=== PATIENT | female | born 1955 | race Caucasian/White ===

== ENCOUNTER 2020-09-29 11:41 | Day surgery (SDC) | payer OTHER ==
[2020-09-25 17:18] VITALS: BMI 29.7
[2020-09-29] MEDS ORDERED: MORPHINE SULFATE 10 MG/1 ML *VIAL ONE (12:26)
[2020-09-29] MEDS ORDERED: MIDAZOLAM HCL 2 MG/2 ML SINGLE DOSE VIAL ONE (12:45)
[2020-09-29] MEDS ORDERED: PROPOFOL 20 ML ONE ×2 (12:45)
[2020-09-29] MEDS ORDERED: LIDOCAINE HCL 2% JELLY (5 ML/TUBE) ONE (12:46)
[2020-09-29] MEDS ORDERED: ceFAZolin SODIUM 1 GM VIAL ONE (12:46)
[2020-09-29] MEDS ORDERED: DEXAMETHASONE SOD PHOSPHATE 4 MG/1 ML VIAL ONE (12:46)
[2020-09-29] MEDS ORDERED: ONDANSETRON 4 MG/2 ML VIAL ONE (12:46)
[2020-09-29] MEDS ORDERED: KETOROLAC TROMETHAMINE 30 MG/1 ML VIAL ONE (12:46)
[2020-09-29] MEDS ORDERED: BUPIVACAINE HCL/PF 0.5% (5 MG/ML) 30 ML VIAL IJ ONE (13:13)
[2020-09-29] MEDS ORDERED: morphine CARPU-JECT 10 MG/1 ML DISP.SYRIN NR ONE (13:14)
[2020-09-29] MEDS ORDERED: ONDANSETRON 4 MG/2 ML VIAL IVPUSH PRN (13:41)
[2020-09-29] MEDS ORDERED: PROMETHAZINE HCL 25 MG/1 ML VIAL IVPUSH PRN (13:41)
[2020-09-29] MEDS ORDERED: oxyCODONE HCL 5 MG TABLET PO PRN ×2 (13:41)
[2020-09-29 15:21] VITALS: BP 130/82; PULSE 72; TEMP 98.2
== END 2020-09-29 15:00 | disposition home or self-care (01) ==
LOC: FASU 11:41
PROVIDERS: ATTEND Orthopaedic Surgery
PROC: 0SN Lower Joints, Release (ICD-10-PCS; 2020-09-29)
PROC: 0SBG4ZZ Excision of Left Ankle Joint, Percutaneous Endoscopic Approach (ICD-10-PCS; principal; 2020-09-29 13:10)
DX: M24.672 Ankylosis, left ankle (principal); M93.272 Osteochondritis dissecans, left ankle and joints of left foot; M65.872 Other synovitis and tenosynovitis, left ankle and foot; M24.172 Other articular cartilage disorders, left ankle
CPT/HCPCS: 94760

== ENCOUNTER 2022-06-08 04:40 | Day surgery (SDC) | payer OTHER ==
[2022-06-08 08:36] VITALS: BMI 27.4
[2022-06-08 11:30] VITALS: BP 109/71; PULSE 58; RESP 16; TEMP 97.9
== END 2022-06-08 10:15 | disposition home or self-care (01) ==
LOC: JASU-ENDO 04:40
PROVIDERS: ATTEND Student in an Organized Health Care Education/Training Program
PROC: 0DB78ZX Excision of Stomach, Pylorus, Via Natural or Artificial Opening Endoscopic, Diagnostic (ICD-10-PCS; 2022-06-08)
PROC: 0DB68ZX Excision of Stomach, Via Natural or Artificial Opening Endoscopic, Diagnostic (ICD-10-PCS; 2022-06-08)
PROC: 0DB48ZX Excision of Esophagogastric Junction, Via Natural or Artificial Opening Endoscopic, Diagnostic (ICD-10-PCS; principal; 2022-06-08 08:00)
DX: K29.60 Other gastritis without bleeding (principal); K21.9 Gastro-esophageal reflux disease without esophagitis; K22.89 Other specified disease of esophagus
CPT/HCPCS: 88305-TC; 88342-TC

== ENCOUNTER → 2025-02-25 | Day surgery (SDC) | payer OTHER ==
[2025-02-20 13:15] VITALS: BMI 28.0
[~2025-02-25] MED LIST: ACETAMINOPHEN INJECTION 100 ML ONE; FENTANYL CITRATE/PF 50 MCG/ML VIAL ONE; HYDROCHLOROTHIAZIDE PO SCH; KETOROLAC TROMETHAMINE 30 MG/1 ML VIAL ONE; LOSARTAN PO SCH; MIDAZOLAM HCL 2 MG/2 ML SINGLE DOSE VIAL ONE; ONDANSETRON 4 MG/2 ML VIAL IVPUSH PRN; PANTOPRAZOLE SODIUM 40 MG PO SCH; PROMETHAZINE HCL 25 MG/1 ML VIAL IVPB PRN; PROPOFOL 20 ML ONE; ROSUVASTATIN CALCIUM 20 MG PO SCH; SUCCINYLCHOLINE CHLORIDE 200 MG/10 ML SYRINGE ONE; SUCRALFATE PO SCH; [UNRECOGNIZED DRUG - OTHER] PO SCH
[2025-02-25] MEDS: BUPIVACAINE 0.25% /EPI 1:200,000 10 ML VIAL NR ONE (11:39)
[2025-02-25 12:54] VITALS: RESP 18; TEMP 97.4
[2025-02-25 13:51] VITALS: BP 118/78; PULSE 65
== END | disposition home or self-care (01) ==
LOC: FASU 08:57
PROVIDERS: ATTEND Orthopaedic Surgery
PROC: 0RHJ44Z Insertion of Internal Fixation Device into Right Shoulder Joint, Percutaneous Endoscopic Approach (ICD-10-PCS; 2025-02-25)
PROC: 0LM14ZZ Reattachment of Right Shoulder Tendon, Percutaneous Endoscopic Approach (ICD-10-PCS; 2025-02-25)
PROC: 0LM14ZZ Reattachment of Right Shoulder Tendon, Percutaneous Endoscopic Approach (ICD-10-PCS; 2025-02-25)
PROC: 0RNJ4ZZ Release Right Shoulder Joint, Percutaneous Endoscopic Approach (ICD-10-PCS; principal; 2025-02-25 10:30)
PROC: 0LS34ZZ Reposition Right Upper Arm Tendon, Percutaneous Endoscopic Approach (ICD-10-PCS; 2025-02-25 10:30)
DX: S46.011D Strain of muscle(s) and tendon(s) of the rotator cuff of right shoulder, subsequent encounter (principal); S43.431D Superior glenoid labrum lesion of right shoulder, subsequent encounter; X58.XXXD Exposure to other specified factors, subsequent encounter; M75.21 Bicipital tendinitis, right shoulder; M75.51 Bursitis of right shoulder; M75.01 Adhesive capsulitis of right shoulder; M19.011 Primary osteoarthritis, right shoulder; Y92.9 Unspecified place or not applicable; Y93.9 Activity, unspecified
CPT/HCPCS: 29823; 29826; 29827; 29828; C1713; 88304-TC; 94760